=== PATIENT | male | born 1960 | race Caucasian/White ===

== ENCOUNTER 2018-05-28 12:05 | Emergency (ER) | payer BC, OTHER ==
[2018-05-28 12:24] VITALS: BP 150/93
--- NOTE | 2018-05-28 12:42 | EDM.PDOC ---
ED HPI GENERAL MEDICAL PROBLEM - General Chief Complaint: ENT Problem Stated Complaint: TOOTH PAIN Time Seen by Provider: 05/28/18 12:38 Source of Information: Reports: Patient History Limitations: Reports: No Limitations - History of Present Illness INITIAL COMMENTS - FREE TEXT/NARRATIVE: 58-year-old male attends the ED with dental pain right lower molar tooth. States he was doing fine up until days ago when he started to develop pain in the right first lower molar tooth. Patient had had a dental cleaning done the day prior. Patient has a crown on his tooth. States first started having pain on night and progressed over the last 36 hours to be continuous throbbing severe pain. Patient has been treated by dentist with clindamycin on 2 previous occasions on both occasions developed Clostridium difficile enteritis. He is therefore very apprehensive about taking any antibiotics. Patient didn't sleep much last night. He's been taking combination of Motrin and Tylenol and maybe gets an hour relief from this treatment. Onset: Gradual Onset Date: 05/26/18 Duration: Day(s):, Constant, Getting Worse Location: Reports: Face (Right lower first molar tooth.) Quality: Reports: Ache, Throbbing ( Left localize this painful tooth very well.) Severity: Moderate (8 out of 10) Improves with: Reports: Medication (Medication helps somewhat) Worsens with: Reports: None Context: Denies: Activity, Exercise, Lifting, Sick Contact, Trauma, Other Associated Symptoms: Denies: No Other Symptoms, Confusion, Chest Pain, Cough, cough w sputum, Diaphoresis, Fever/Chills, Headaches, Loss of Appetite, Malaise , Nausea/Vomiting, Rash, Seizure, Shortness of Breath, Syncope 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, 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 (Motrin 600 mg every 6 hours) Right Lower Tooth/Teeth Pain Score (Numeric/FACES): 10 - Related Data Allergies Allergy/AdvReac Type Severity Reaction Status Date / Time theophylline anhydrous Allergy Tachycardia Verified 05/23/15 10:51 [From Fermin] Home Meds: Home Meds Doxycycline Hyclate 100 mg PO BID #20 tablet 05/28/18 [Rx] oxyCODONE HCl/Acetaminophen [Percocet 5-325 mg Tablet] 1 each PO BID #20 tablet 05/28/18 [Rx] Past Medical History - Past Health History Medical/Surgical History: Denies Medical/Surgical History Respiratory History: Reports: COPD (Chronic cigarette smoker) Social & Family History - Tobacco Use Smoking Status *Q: Current Every Day Smoker Years of Tobacco use: 15 Packs/Tins Daily: 0.7 - Caffeine Use Caffeine Use: Reports: Coffee, Soda - Recreational Drug Use Recreational Drug Use: No - Living Situation & Occupation Living situation: Reports: Occupation: Employed ED ROS ENT - Review of Systems Review Of Systems: See Below Constitutional: Reports: Fatigue HEENT: Reports: Dental Pain (Right lower first molar tooth.) Respiratory: Reports: Cough, Sputum (Occasional brown sputum production.) Cardiovascular: Reports: No Symptoms Endocrine: Reports: No Symptoms GI/Abdominal: Reports: No Symptoms : Reports: No Symptoms Musculoskeletal: Reports: No Symptoms Skin: Reports: No Symptoms Neurological: Reports: No Symptoms Psychiatric: Reports: No Symptoms Hematologic/Lymphatic: Reports: No Symptoms Immunologic: Reports: No Symptoms ED EXAM, ENT - Physical Exam Exam: See Below Exam Limited By: No Limitations General Appearance: Alert, WD/WN, No Apparent Distress Eye Exam: Bilateral Eye: Normal Inspection Mouth/Throat: Dental Pain (Severe dental pain on palpation of the right lower left first molar tooth with a tongue blade. No obvious gingiva all abscess. There is a crown which appears almost temporary on that tooth.) Head: Atraumatic, Normocephalic Neck: Normal Inspection, Supple, Non-Tender, Full Range of Motion. No: Lymphadenopathy (L), Lymphadenopathy (R) Respiratory/Chest: Decreased Breath Sounds, Wheezing (Mildly decreased breath sounds to both posterior lung fierro. Spine Bryan wheeze. Patient is a chronic cigarette smoker.) Course - Vital Signs Last Recorded V/S: Last Vital Signs Temp 36.8 C 05/28/18 12:23 Pulse 73 05/28/18 12:23 Resp 20 05/28/18 12:23 BP 150/93 H 05/28/18 12:23 Pulse Ox 96 05/28/18 12:23 - Radiology Interpretation Free Text/Narrative:: 58-year-old male presents to the ED with severe dental pain right lower first molar tooth. Interestingly he had his teeth cleaned Wednesday last week and pain started the following day. Since then the pain is gradually progressed intensity and severity Him up most of last night. Minimal relief with a combination of Motrin 600 mg every 6 hours with Tylenol in between for pain relief. Patient has had previous C. difficile enteritis on 2 occasions from antibiotic prescribed by dentist. Both times were clindamycin. Patient is therefore some reluctance to taking any antibiotics for an infective process. This is certainly understandable. Plan doxycycline 100 mg twice daily for 10 days as this is highly unlikely to cause C. difficile enteritis. Percocet tabs 5 /325 milligrams strength one or 2 every 4-6 hours with continuing Motrin use for pain relief until he can get into the dentist next week. Departure - Departure Time of Disposition: 12:38 Disposition: Home, Self-Care 01 Condition: Fair Clinical Impression: Dental infection, Dental abscess - Discharge Information *PRESCRIPTION DRUG MONITORING PROGRAM REVIEWED*: Not Applicable *COPY OF PRESCRIPTION DRUG MONITORING REPORT IN PATIENT KAMERON: Not Applicable Prescriptions: Doxycycline Hyclate 100 mg PO BID #20 tablet oxyCODONE HCl/Acetaminophen [Percocet 5-325 mg Tablet] 1 each PO BID #20 tablet Instructions: Dental Abscess, [id number] Referrals: Douglas Edwards MD [Primary Care Provider] - Forms: ED Department Discharge Additional Instructions: Evaluation the emergency room today in regards to gradually worsening pain in the right lower first molar tooth which is a temporary cap on it. Appears that most recent dental cleaning may have loosened the End opened it up enough to introduce an infection into the tooth. The tooth is exquisitely tender to touch with the tongue blade. Treatment suggested to be antibiotic doxycycline 100 mg twice daily for the next 10 days to clear up dental infection. This hasn't been extremely low risk of causing any Clostridium difficile infection. The previous antibiotic clindamycin is also the most famous for causing C. difficile enteritis. Continue ibuprofen / Advil /Motrin all of the same medication--600 mg every 6 hours to reduce pain and inflammation. May use Percocet 5/325 mg tablets one or 2 every 4-6 hours as needed for pain not controlled by Motrin alone. Follow-up with dentist as soon as possible to have the dental problem fixed.
== END 2018-05-28 13:04 | disposition home or self-care (01) ==
LOC: JD.ED 12:05
DX: K04.7 Periapical abscess without sinus (principal); J44.9 Chronic obstructive pulmonary disease, unspecified; Z88.8 Allergy status to other drugs, medicaments and biological substances; F17.210 Nicotine dependence, cigarettes, uncomplicated
CPT/HCPCS: 99283

== ENCOUNTER 2020-06-04 11:18 | Emergency (ER) | payer OTHER ==
[2020-06-04 11:31] VITALS: BP 144/104; PULSE 72
--- NOTE | 2020-06-04 12:03 | EDM.PDOC ---
ED HPI GENERAL MEDICAL PROBLEM - General Chief Complaint: Abdominal Pain Stated Complaint: ABDOMINAL PAIN Time Seen by Provider: 06/04/20 12:03 Source of Information: Reports: Patient History Limitations: Reports: No Limitations - History of Present Illness INITIAL COMMENTS - FREE TEXT/NARRATIVE: 60-year-old male presents to the ED with acute onset of left lower quadrant inguinal pain at the site of a known left inguinal hernia. He had seen Dr. Caldera surgeon last week in clinic and had a been left up in the air as it was quite small as to whether or not he want to pursue surgical repair. At that time and a [id number] plan was adopted. This morning at work about 0930 hrs. she developed sudden onset of severe left lower quadrant abdominal pain with bulge. Pain radiated towards his umbilicus and associate with nausea without vomiting. This forced him to leave work and he went home. He lie down on the bed for a period of time and after about an hour or so he elected to come to the hospital. In route to the hospital the pain disappeared completely. He now feels completely back to normal. Onset: Today, Sudden Onset Date: 06/04/20 Onset Time: 09:30 Duration: Hour(s):, Resolved Prior to Arrival Location: Reports: Abdomen (Left lower) Quality: Reports: Ache ( abdominal pain left inguinal pain.), Pressure, Other Severity: Moderate (Some sharp stabbing component to the pain) Improves with: Reports: Other (Spontaneously en route to the hospital.) Worsens with: Reports: None Context: Reports: Other (Patient has a known left inguinal hernia. He had seen urgent Dr. caldera at [facility] last week in this regard. Decision was made up to the patient is whether or not to pursue surgery.). Denies: Activity, Exercise, Lifting, Sick Contact, Trauma Associated Symptoms: Reports: Nausea/Vomiting, Other (Nausea without vomiting. 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 [No Known Home Meds] 06/04/20 [History] Past Medical History - Past Health History Medical/Surgical History: Denies Medical/Surgical History Cardiovascular History: Reports: None Respiratory History: Reports: Asthma Gastrointestinal History: Reports: Other (See Below) Other Gastrointestinal History: Pt reports he has a hernia in the left pelvic area. Genitourinary History: Reports: None Musculoskeletal History: Reports: None Neurological History: Reports: None Psychiatric History: Reports: None Endocrine/Metabolic History: Reports: None Hematologic History: Reports: None Immunologic History: Reports: None Oncologic (Cancer) History: Reports: None - Infectious Disease History Infectious Disease History: Reports: None - Past Surgical History HEENT Surgical History: Reports: Adenoidectomy, Tonsillectomy GI Surgical History: Reports: Colonoscopy Dermatological Surgical History: Reports: Other (See Below) Social & Family History - Tobacco Use Smoking Status *Q: Current Every Day Smoker Years of Tobacco use: 30 Packs/Tins Daily: 0.7 - Caffeine Use Caffeine Use: Reports: Coffee - Recreational Drug Use Recreational Drug Use: No - Living Situation & Occupation Living situation: Reports: Occupation: Employed ED ROS GENERAL - Review of Systems Review Of Systems: See Below Constitutional: Denies: Fever, Chills, Malaise, Weakness, Fatigue, Decreased Appetite, Weight Loss HEENT: Reports: Glasses Respiratory: Reports: No Symptoms Cardiovascular: Reports: No Symptoms Endocrine: Reports: No Symptoms GI/Abdominal: Reports: Abdominal Pain (Inguinal hernia.). Denies: Constipation, Diarrhea : Reports: No Symptoms Musculoskeletal: Reports: No Symptoms Skin: Reports: No Symptoms Neurological: Reports: No Symptoms Psychiatric: Reports: No Symptoms Hematologic/Lymphatic: Reports: No Symptoms Immunologic: Reports: No Symptoms ED EXAM, GI/ABD - Physical Exam Exam: See Below Exam Limited By: No Limitations General Appearance: Alert, WD/WN, Anxious, Mild Distress, Other (Temperature is 36.6 with a heart rate of 72 and sinus respiratory 16 with O2 sats of 98% room air BP initially was elevated at 144 104 but did come down to 1 3292.) Eyes: Bilateral: Normal Appearance (No scleral icterus or blepharal pallor.) Respiratory/Chest: No Respiratory Distress, Lungs Clear, Normal Breath Sounds, No Accessory Muscle Use, Chest Non-Tender Cardiovascular: Normal Peripheral Pulses, Regular Rate, Rhythm, No Edema, No Gallop, No Murmur, No Rub GI/Abdominal Exam: Soft, Non-Tender, No Organomegaly, No Abnormal Bruit, No Mass, Pelvis Stable, Abnormal Bowel Sounds (No sounds were hyperactive in all 4 quadrants.), Other (Evagination of the scrotum bilaterally revealed cough impulses bilaterally. No hernia is evident at present on the left side.) Back Exam: Normal Inspection, Full Range of Motion, Other. No: CVA Tenderness (L), CVA Tenderness (R) Extremities: Normal Inspection, Normal Range of Motion, No Pedal Edema Neurological: Alert, Oriented, CN II-XII Intact, Normal Cognition, Normal Gait Psychiatric: Normal Affect, Normal Mood Skin Exam: Dry, Intact, Normal Color, No Rash Course - Vital Signs Last Recorded V/S: Last Vital Signs Temp 36.6 C 06/04/20 11:29 Pulse 72 06/04/20 11:29 Resp 16 06/04/20 11:29 BP 144/104 H 06/04/20 11:29 Pulse Ox 98 06/04/20 11:29 - Radiology Interpretation Free Text/Narrative:: 60-year-old male presents to the ED for evaluation of acute onset of severe left lower quadrant abdominal pain. This is at the site of a known left inguinal hernia that was diagnosed in the clinic a couple of weeks ago. Patient is followed up with surgeon Dr. Caldera--and decision was made up to the patient to adopt a [id number] approach as to whether or not he wished it repaired. However today he developed sudden onset of severe left lower quadrant inguinal pain that forced him to leave work. He had pain rating up into the left upper quadrant and towards his umbilicus. Associated nausea. He went home and laid down in the bed and within 45 minutes or so the pain started to dissipate. He elected to come to the hospital for further evaluation. When seen here he is completely pain-free and there is no abdominal mass or incarcerated hernia. Invagination of the scrotum reveals a good cough impulse bilaterally but no evidence of incarcerated hernia. He has follow-up with in 2 days time and he was advised to pursue a surgical approach. Departure - Departure Time of Disposition: 12:15 Disposition: Home, Self-Care 01 Condition: Fair Clinical Impression: Inguinal hernia Qualifiers: Obstruction and gangrene presence: without obstruction or gangrene Laterality: unilateral Recurrence: non-recurrent Qualified Code(s): K40.90 - Unilateral inguinal hernia, without obstruction or gangrene, not specified as recurrent - Discharge Information *PRESCRIPTION DRUG MONITORING PROGRAM REVIEWED*: Not Applicable *COPY OF PRESCRIPTION DRUG MONITORING REPORT IN PATIENT KAMERON: Not Applicable Instructions: Inguinal Hernia, Adult, [id number] Referrals: PCP,None [Primary Care Provider] - Forms: ED Department Discharge Additional Instructions: Evaluation in the emergency room today in regards to development of acute severe left lower abdominal inguinal pain at the site of a known inguinal hernia. This occurred about 0930 hrs. this morning while at work. He went home from work to lie down for period of time and on the way to the hospital the pain dissipated completely. On examination there is evidence of bilateral cough impulses on invagination of the scrotum. You have an appointment to see with [facility] surgeon on this week and I would encourage you to keep this appointment to arrange for left inguinal hernia repair. If it happens again you must lay down and massage the area until the hernia goes back in. If it fails to do so within the hour you need to come back to the ED. Sepsis Event Note (ED) - Evaluation Sepsis Screening Result: No Definite Risk - Focused Exam Vital Signs: Vital Signs Temp Pulse Resp BP Pulse Ox 06/04/20 11:29 36.6 C 72 16 144/104 H 98
== END 2020-06-04 12:10 | disposition home or self-care (01) ==
LOC: JD.ED 11:18
DX: K40.90 Unilateral inguinal hernia, without obstruction or gangrene, not specified as recurrent (principal); J45.909 Unspecified asthma, uncomplicated; F17.210 Nicotine dependence, cigarettes, uncomplicated; Z88.8 Allergy status to other drugs, medicaments and biological substances
CPT/HCPCS: 99282; 99283

== ENCOUNTER 2022-08-14 14:26 | Emergency (ER) | payer BC, OTHER ==
[2022-08-14 14:39] VITALS: BP 155/89; PULSE 65
== END 2022-08-14 16:20 | disposition home or self-care (01) ==
LOC: JD.ED 14:26
DX: S62.635A Displaced fracture of distal phalanx of left ring finger, initial encounter for closed fracture (principal); S67.195A Crushing injury of left ring finger, initial encounter; F17.210 Nicotine dependence, cigarettes, uncomplicated; Z88.8 Allergy status to other drugs, medicaments and biological substances; W23.1XXA Caught, crushed, jammed, or pinched between stationary objects, initial encounter
CPT/HCPCS: 12001; 73140-26-F3; 73140-F3; 99283-25

== ENCOUNTER 2023-09-05 11:06 | Emergency (ER) | payer BC ==
[2023-09-05 13:13] VITALS: BP 122/74; PULSE 70
== END 2023-09-05 13:10 | disposition home or self-care (01) ==
LOC: JD.ED 11:06
DX: S46.212A Strain of muscle, fascia and tendon of other parts of biceps, left arm, initial encounter (principal); F17.210 Nicotine dependence, cigarettes, uncomplicated; Z88.8 Allergy status to other drugs, medicaments and biological substances; X50.0XXA Overexertion from strenuous movement or load, initial encounter
CPT/HCPCS: 99282; 99283

== ENCOUNTER 2025-02-16 08:33 | Emergency (ER) | payer BC ==
[2025-02-16] MEDS: Diltiazem 25 MG/5 ML SDV IVPUSH ONE (09:12)
[2025-02-16 09:41] LABS: BASOPHILS ABSOLUTE AUTO 0.1 K/mm3 (0.0-0.2); BASOPHILS PERCENT AUTO 0.7 % (0.0-1.0); EOSINOPHILS ABSOLUTE AUTO 0.1 K/mm3 (0.0-0.4); HEMATOCRIT 47.1 % (42.0-52.0); HEMOGLOBIN 16.3 gm/dl (14.0-18.0); IMMATURE GRAN ABSOLUTE AUTO 0.02 K/mm3 (0.00-0.05); IMMATURE GRAN PERCENT AUTO 0.2 % (0.0-0.4); LYMPHOCYTES ABSOLUTE AUTO 1.9 K/mm3 (1.0-4.8); LYMPHOCYTES PERCENT AUTO 21.4 % (24.0-44.0); MEAN CORPUSCULAR HEMOGLOBIN 31.9 pg (28.0-32.0); MEAN CORPUSCULAR HGB CONC 34.6 g/dl (32.0-36.0); MEAN CORPUSCULAR VOLUME 92.2 fl (83.0-99.0); MEAN PLATELET VOLUME 10.9 fl (9.4-12.4); MONOCYTES PERCENT AUTO 10.7 % (0.0-8.0); NEUTROPHILS ABSOLUTE AUTO 5.9 K/mm3 (1.8-7.7); PLATELET COUNT,PLT 237 K/mm3 (150-400); RED BLOOD CELL COUNT 5.11 M/mm3 (4.52-5.90); WHITE BLOOD CELL COUNT,WBC 8.91 K/mm3 (3.9-11.3)
[2025-02-16 09:51] LABS: A/G RATIO 1.3 (1-2); ALBUMIN 3.9 g/dl (3.4-5.0); ANION GAP 11.2 (5-15); BILIRUBIN TOTAL 0.4 mg/dL (0.2-1.0); BUN/CREATININE RATIO 17.8 (14-18); CALCIUM 9.5 mg/dL (8.5-10.1); CREATININE 0.9 mg/dL (0.7-1.3); EST CRCL DRUG DOSING (CG) 82.92 mL/min; POTASSIUM,K 4.2 mEq/L (3.5-5.1)
[2025-02-16] MEDS: Diltiazem IR 30 MG Tab PO ONE (09:56)
[2025-02-16] MEDS: Sodium Chloride 0.9% 10 ML Syringe FLUSH PRN (09:56)
[2025-02-16 17:30] VITALS: BP 126/88; PULSE 65
== END 2025-02-16 12:46 | disposition home or self-care (01) ==
LOC: JD.ED 08:33
DX: I48.91 Unspecified atrial fibrillation (principal); Z79.899 Other long term (current) drug therapy; Z79.82 Long term (current) use of aspirin; Z88.8 Allergy status to other drugs, medicaments and biological substances
CPT/HCPCS: 36415; 71045; 80053; 82550; 83735; 84484; 85025; 85379; 93005; 96374; 99285; A9270; J3490